=== PATIENT | male | born 1975 | race Caucasian/White ===

== ENCOUNTER → 2017-01-05 | Outpatient (CLI) | payer OTHER ==
--- NOTE | 2017-01-05 14:46 | CT ---
EXAMINATION TYPE: CT chest w con DATE OF EXAM: 01/05/2017 1:25 PM COMPARISON: Most recent chest CT April 07, 2016, older exams back to February 06, 2015. HISTORY: Patient has no complaints at time of service. Follow up study for known lung nodule. Prior abnormal chest CT. CT DLP: 881 mGycm. Automated Exposure Control for Dose Reduction was Utilized. TECHNIQUE: CT scan of the thorax is performed following with IV Contrast, patient injected with 100 mL of Omnipaque 300. FINDINGS: LUNGS: Sub-4 mm scarlike opacity right lung apex on axial image 15 is stable from prior studies. No n ew parenchymal nodule or mass is present bilaterally. There is no pleural effusion or pneumothorax seen bilaterally. The tracheobronchial tree is patent. MEDIASTINUM: There are no greater than 1 cm hilar or mediastinal lymph nodes. No pericardial effusi on is seen. Heart size is stable and within normal limits OTHER: The visualized liver is diffusely low dense consistent with fatty infiltration. Small degree of bilateral gynecomastia is redemonstrated. Some multilevel spurring in the mid to lower thoracic s pine is redemonstrated. IMPRESSION: Stable 3 to 4 mm scarlike opacity right lung apex presumed postinflammatory given two-yea r stability. No further follow-up necessary.
== END | disposition home or self-care (01) ==
LOC: RADCTMAIN 12:55
PROVIDERS: ATTEND Internal Medicine Critical Care Medicine
DX: R91.8 Other nonspecific abnormal finding of lung field (principal)
CPT/HCPCS: 71260; Q9967